=== PATIENT | female | born 2000 | race Hispanic/Latino ===

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

== ENCOUNTER 2020-06-08 09:22 | Emergency (ER) | payer MEDICAID, OTHER | END 2020-06-08 10:36 | disposition home or self-care (01) | LOC: EDH 09:22 | DX: R53.83 Other fatigue (principal); J06.9 Acute upper respiratory infection, unspecified; G93.3 Postviral and related fatigue syndromes; Z88.0 Allergy status to penicillin | CPT/HCPCS: 87804; 87880 ==

== ENCOUNTER 2020-10-22 20:58 | Emergency (ER) | payer MEDICAID ==
[~2020-10-22] VITALS: Ht 152.4 cm; Wt 93.4 kg
[2020-10-22] MEDS ORDERED: CEPH500B PO (21:27)
[2020-10-22] MEDS ORDERED: ONDA4TAB10 PO (21:27)
[2020-10-22] MEDS ORDERED: CEPHALEXIN 500 MG CAPSULE PO ONE (21:30)
[2020-10-22] MEDS ORDERED: ONDANSETRON ODT 4MG TAB SL ONE (21:30)
[2020-10-22] MEDS ORDERED: DIPHENHYDRAMINE HCL 25 MG CAPSULE PO ONE (21:30)
== END 2020-10-22 21:47 | disposition home or self-care (01) ==
LOC: EDH 20:58
DX: R11.2 Nausea with vomiting, unspecified (principal); R06.02 Shortness of breath; T36.3X5A Adverse effect of macrolides, initial encounter; R05 Cough; F41.1 Generalized anxiety disorder; Z87.442 Personal history of urinary calculi; Z88.1 Allergy status to other antibiotic agents; Z79.899 Other long term (current) drug therapy; Y92.89 Other specified places as the place of occurrence of the external cause
CPT/HCPCS: 99284; Q0163

== ENCOUNTER 2021-04-29 15:15 | Emergency (ER) | payer MEDICAID ==
[~2021-04-29] VITALS: Ht 152.4 cm; Wt 95.3 kg
[~2021-04-29 15:15] MED LIST: CEPH500B PO; ONDA4TAB10 PO
[2021-04-29 17:56] LABS: BASOPHILS % (AUTO) 0.4 % (0.0-5.0); EOSINOPHILS % (AUTO) 0.6 % (0.0-8.0); LYMPHOCYTES % (AUTO) 23.8 % (21.0-51.0); MEAN CORPUSCULAR HEMOGLOBIN 28.7 pg (27.0-33.0); MEAN CORPUSCULAR HGB CONC 33.6 g/dL (32.0-36.0); MEAN CORPUSCULAR VOLUME 85.4 fL (80-100); MONOCYTES % (AUTO) 5.1 % (3.0-13.0); NEUTROPHILS % (AUTO) 69.7 % (40.0-77.0); PLATELET COUNT (AUTO) 343 K/uL (130-400); RED BLOOD CELL COUNT(AUTO) 4.92 MIL/uL (4.00-5.50); RED CELL DISTRIBUTION WIDTH 14.6 % (11.0-15.5); WHITE BLOOD COUNT (AUTO) 10.9 K/uL (4.8-10.8)
[2021-04-29] MEDS ORDERED: ONDANSETRON ODT 4MG TAB SL ONE (18:00)
[2021-04-29 18:03] LABS: CARBON DIOXIDE 29 mmol/L (21-32); CHLORIDE 102 mmol/L (101-111); CREATININE 0.6 mg/dL (0.5-1.5); GLOMERULAR FILTR. RATE CALC 135 mL/min (>60); GLUCOSE,RANDOM 97 mg/dL (70-105); POTASSIUM 3.2 mmol/L (3.5-5.1); SODIUM SERUM 137 mmol/L (136-145); UREA NITROGEN, BLOOD 6 mg/dL (7-18)
[2021-04-29 18:08] LABS: ALANINE AMINOTRANSFERASE 56 U/L (12-78); ASPARTATE AMINOTRANSFERASE 27 U/L (10-37); BILIRUBIN,TOTAL 0.3 mg/dL (0.2-1.0); TOTAL PROTEIN, SERUM 7.4 g/dL (6.0-8.3)
[2021-04-29 18:15] LABS: CRP QUANTITATIVE < 2.00 mg/L (0.00-9.0)
[2021-04-29 18:21] LABS: APPEARANCE,URINE Clear (CLEAR); BILIRUBIN,URINE Negative (NEGATIVE); COLOR,URINE Yellow (YELLOW); GLUCOSE, URINE (UA) Negative (NEGATIVE); HCG,QUAL RESULT POSITIVE (NEGATIVE); KETONES,URINE Negative (NEGATIVE); LEUKOCYTE ESTERASE ,URINE Negative (NEGATIVE); NITRATE,URINE Negative (NEGATIVE); OCCULT BLOOD,URINE Trace (NEGATIVE); PROTEIN,URINE Negative (NEGATIVE); UROBILINOGEN,URINE 0.2 mg/dL (0.2-1.0)
[2021-04-29] MEDS ORDERED: POTASSIUM BICARB/CIT AC 25 MEQ TABLET.EFF PO ONE (18:30)
[2021-04-29 18:42] LABS: BACTERIA,URINE Few /HPF (None Seen); RBC,URINE None Seen /HPF (0-1); SQUAMOUS EPITHELIAL CELL,UR 0-2 /HPF (0-2); WBC,URINE None Seen /HPF (0-1)
[2021-04-29] MEDS ORDERED: PREN-61 PO (19:56)
[2021-04-29] MEDS ORDERED: ONDA4TAB10 PO (19:56)
[2021-04-29 20:18] VITALS: BP 127/80
== END 2021-04-29 20:24 | disposition home or self-care (01) ==
LOC: EDH 15:15
DX: R11.2 Nausea with vomiting, unspecified (principal); Z33.1 Pregnant state, incidental; Z20.822 Contact with and (suspected) exposure to COVID-19; Z87.442 Personal history of urinary calculi; Z88.0 Allergy status to penicillin
CPT/HCPCS: 36415; 80053; 81001; 81025; 84702; 85025; 86140; 87635; 99283; C9803